=== PATIENT | male | born 1945 | race Two or more races ===

== ENCOUNTER 2022-08-28 07:15 | Day surgery (SDC) | payer MEDICARE, OTHER ==
[2022-08-24 13:38] LABS: Absolute Lymphocytes (CBC) 1.7 K/uL (0.7-4.9); Hematocrit 39.2 % (39.6-49.0); Lymphocytes % 32.7 % (15.3-44.8); MCV 102.8 fL (80-100); RBC Red Blood Cell Count 3.82 M/uL (4.33-5.43)
--- NOTE | 2022-08-24 13:39 | RAD REPORT ---
EXAM DESCRIPTION: RAD - Chest Pa And Lat (2 Views) - 08/24/2022 1:30 pm CLINICAL HISTORY: pre op for surgery Chest pain. TECHNIQUE: PA and lateral views of the chest were obtained. FINDINGS: The lungs are hyperexpanded compatible with COPD. The heart is upper limit of normal in si ze. No fracture or aggressive bony process. Dual lead pacer device. IMPRESSION: COPD without acute process identified. The USPSTF recommends annual screening for lung cancer with low-dose CT (LDCT) in adults aged 50 to 80 years who have a 20 pack-year smoking history and currently smoke or have quit within the past 15 years.
[2022-08-24 13:48] LABS: Potassium 4.5 mEq/L (3.5-5.1)
--- NOTE | 2022-08-25 07:48 | EKG ---
Test Date: 2022-08-24 Test Time: 13:20:45 Outpatient Clerk: LUPIS MEASUREMENT RESULTS: Intervals: Rate: 60 VT: 176 QRSD: 150 QT: 444 QTc: 444 [place]: P: 23 VT: 176 QRS: 45 T: 25 INTERPRETIVE STATEMENTS: Electronic atrial pacemaker Right bundle branch block Abnormal ECG Compared to ECG 01/16/2005 07:28:00 Sinus bradycardia no longer present Left ventricular hypertrophy no longer present Electronically Signed On 08-25-22 07:45:50 CDT by Murphy Bailon
[2022-08-28] MEDS ORDERED: CEFAZOLIN SODIUM 1 GM/VIAL ONE (07:37)
[2022-08-28] MEDS ORDERED: Ringers Lactate 1,000 ML IV ONE (07:37)
[2022-08-28] MEDS ORDERED: propofoL 200 MG/20 ML VIAL IV ONE (08:23)
[2022-08-28] MEDS ORDERED: LIDOCAINE 2% MPF 5 ML VIAL ONE (08:24)
[2022-08-28] MEDS ORDERED: FENTANYL CITR 100 MCG/2 ML ONE (08:24)
[2022-08-28] MEDS ORDERED: ONDANSETRON 4 MG/2 ML VIAL ONE (08:25)
[2022-08-28] MEDS ORDERED: BUPIVACAINE 0.5% PF 10 ML VIAL ONE (09:01)
[2022-08-28] MEDS ORDERED: NS 0.9% VIAL 20 ML ONE (09:20)
[2022-08-28] MEDS ORDERED: Phenylephrine HCl 10 MG/ML 1 ML VIAL ONE (09:21)
[2022-08-28] MEDS ORDERED: GLYCOPYRROLATE 0.2 MG/ML SYR ONE (09:21)
[2022-08-28] MEDS ORDERED: HYDROCODONE/APAP 7.5/325 MG TAB PO PRN (09:50)
[2022-08-28 10:03] VITALS: O2SAT 100
[2022-08-28 10:39] VITALS: BP 135/72; TEMP 96.7
== END 2022-08-28 11:04 | disposition home or self-care (01) ==
LOC: OR 07:15
PROVIDERS: ATTEND Surgery
PROC: 0JB90ZZ Excision of Buttock Subcutaneous Tissue and Fascia, Open Approach (ICD-10-PCS; principal; 2022-08-28 08:30)
DX: B07.9 Viral wart, unspecified (principal)
CPT/HCPCS: 11402; 93005; 85025; 80048; 36415; 88305; 71046; A4216; J2704; J2370; J2001; J3010; J2405; J7120; J0690

== ENCOUNTER 2024-01-10 20:41 | Emergency (ER) | payer OTHER ==
[2024-01-10] MEDS ORDERED: MORPHINE 4 MG/ML SYR ONE (21:02)
[2024-01-10] MEDS ORDERED: ONDANSETRON 4 MG/2 ML VIAL ONE (21:02)
[2024-01-10 21:15] LABS: Absolute Basophils 0.1 K/uL (0-0.5); Absolute Eosinophils 0.6 K/uL (0-0.5); Absolute Lymphocytes (CBC) 1.2 K/uL (0.7-4.9); Absolute Monocytes 0.7 K/uL (0.1-1.3); Absolute Neutrophil 2.4 K/uL (1.8-8.0); Basophils % 1.8 % (0-1.3); Eosinophils % 11.3 % (0-4.4); Hematocrit 38.2 % (39.6-49.0); MCH 35.1 pg (27.0-35.0); MCHC 34.1 g/dL (32.0-36.0); MCV 102.8 fL (80-100); MPV 8.4 fL (7.6-11.3); Monocytes % 13.9 % (3.3-12.3); Nucleated Red Blood Cells % 0.2 % (0-0); Platelets 316 thou/uL (152-406); RBC Red Blood Cell Count 3.71 M/uL (4.33-5.43); Red Cell Distribution Width 14.3 % (12.1-15.2)
[2024-01-10 21:32] LABS: Albumin 4.1 g/dL (3.4-5.0); Albumin/Globulin Ratio 1.1 (1.1-1.8); Anion Gap 6.4 mEq/L (5.0-15.0); Bilirubin Direct 0.2 mg/dL (0-0.2); Bilirubin Indirect, Calculated 0.4 mg/dL (0.2-0.8); Bilirubin Total 0.6 mg/dL (0.2-1.0); Globulin 3.6 g/dL (2.3-3.5); Magnesium 2.2 mg/dL (1.6-2.4); Potassium 4.4 mEq/L (3.5-5.1); Protein, Total 7.7 g/dL (6.4-8.2); Troponin High Sensitivity 15.1 pg/mL (<58.9)
--- NOTE | 2024-01-10 23:11 | RAD REPORT ---
EXAM: CTA of the chest, abdomen and pelvis HISTORY: Chest, abdomen and back pain COMPARISON: 2014 renal ultrasound TECHNIQUE: Multiple contiguous axial images were obtained a CTA of the chest and abdomen with contras t per aortic dissection protocol. Sagittal and coronal 3-D MIP reformats were performed. 100 cc 370 Isovue administered intravenously. FINDINGS: An aortic dissection not present. No aortic aneurysm. SMA, BENJA and celiac arteries patent Narrowing of the left subclavian vein. This results in collateral blood flow. 2 main right renal arteries. One main left renal arteries. Renal arteries unremarkable. No lung consolidation. Areas of subsegmental atelectasis right lung base. Elevation right hemidiaphra gm. No pleural effusion. No pericardial effusion Liver, spleen, pancreas, adrenals and left kidney demonstrate no significant abnormality. 2.2 cm cyst right kidney. An additional 6 mm right renal cystic mass too small to accurately characte rize. No evidence of diverticulitis. IMPRESSION: Negative for an aortic dissection 6 mm right renal cystic mass probably benign. Follow-up renal ultrasound in one year recommended Narrowing of the left subclavian vein most likely secondary to the arm being raised
--- NOTE | 2024-01-11 00:30 | EDPHYS ---
Physician Documentation [facility] Name: Kane Toney Age: 78 yrs Sex: Male : 1945 Arrival Date: 01/10/2024 Time: 20:41 Bed 4 Private MD: ED Physician Kenny Fuller HPI: 01/09 21:06 This 78 yrs old [place] Male presents to ER via Wheelchair with complaints of rt Irregular Pulse. 21:06 Patient with history of pacemaker placement about 1 years ago presents to the ED with rt reported low pulse is down to the 30s. The patient reports having pain to his back, denies chest pain. Denies other acute complaints, symptoms are moderate in severity, no other aggravating alleviating factors.. Historical: - Allergies: 21:01 Levaquin; vc1 - PSHx: 21:01 PACER; vc1 - Immunization history:: Client reports receiving the 2nd dose of the Covid vaccine. - Infectious Disease History:: Denies. - Social history:: Smoking status: Patient/guardian denies using tobacco, but has a distant history of tobacco abuse. - Family history:: not pertinent. ROS: 21:06 Constitutional: Negative for fever, chills, and weight loss, Cardiovascular: Negative rt for chest pain, palpitations, and edema, Respiratory: Negative for shortness of breath, cough, wheezing, and pleuritic chest pain, Abdomen/GI: Negative for abdominal pain, nausea, vomiting, diarrhea, and constipation, MS/Extremity: Negative for injury and deformity, Skin: Negative for injury, rash, and discoloration, 21:06 Back: Positive for pain at rest, pain with movement, Exam: 21:06 Constitutional: This is a well developed, well nourished patient who is awake, alert, rt and in no acute distress. Head/Face: Normocephalic, atraumatic. Chest/axilla: Normal chest wall appearance and motion. Nontender with no deformity. No lesions are appreciated. Cardiovascular: Regular rate and rhythm with a normal S1 and S2. No gallops, murmurs, or rubs. Normal PMI, no JVD. No pulse deficits. Respiratory: Lungs have equal breath sounds bilaterally, clear to auscultation and percussion. No rales, rhonchi or wheezes noted. No increased work of breathing, no retractions or nasal flaring. Abdomen/GI: Soft, non-tender, with normal bowel sounds. No distension or tympany. No guarding or rebound. No evidence of tenderness throughout. Skin: Warm, dry with normal turgor. Normal color with no rashes, no lesions, and no evidence of cellulitis. MS/ Extremity: Pulses equal, no cyanosis. Neurovascular intact. Full, normal range of motion. Neuro: Awake and alert, GCS 15, oriented to person, place, time, and situation. Cranial nerves II-XII grossly intact. Motor strength 5/5 in all extremities. Sensory grossly intact. Cerebellar exam normal. Normal gait. 21:06 ECG was reviewed by the Attending Physician. Vital Signs: 20:57 BP 171 / 85; Pulse 60; Resp 15; Temp 97.5; Pulse Ox 100% ; Weight 71.21 kg; Height 5 vc1 ft. 7 in. ; Pain 10/10; 21:08 BP 139 / 61; Pulse 69; Resp 15; Temp 97.5; Pulse Ox 100% on R/A; Pain 8/10; bm8 22:28 BP 145 / 83; Pulse 63; Resp 14; Temp 97.5; Pulse Ox 99% ; Pain 0/10; bm8 01/10 00:30 BP 139 / 76; Pulse 62; Resp 20; Temp 97.5; Pulse Ox 100% ; Pain 0/10; bm8 01/09 20:57 Body Mass Index 24.59 (71.21 kg, 170.18 cm) vc1 01/09 20:57 Pain Scale: Adult vc1 21:08 Pain Scale: Adult bm8 22:28 Pain Scale: Adult bm8 01/10 00:30 Pain Scale: Adult bm8 Nahma Coma Score: 01/09 21:08 Eye Response: spontaneous(4). Motor Response: obeys commands(6). Verbal Response: bm8 oriented(5). Total: 15. 22:28 Eye Response: spontaneous(4). Motor Response: obeys commands(6). Verbal Response: bm8 oriented(5). Total: 15. 01/10 00:30 Eye Response: spontaneous(4). Motor Response: obeys commands(6). Verbal Response: bm8 oriented(5). Total: 15. MDM: 01/09 20:49 Patient medically screened. rt 01/10 01:14 Differential Diagnosis Mechanical back pain, aortic dissection. Data reviewed: vital rt signs, nurses notes, lab test result(s), EKG, radiologic studies. Consideration of Admission/Observation Escalation of care including admission/observation considered. Patient's heart rates been in the 60s throughout his time in the emergency department, was observed for period of time. Symptoms have resolved with treatment in the ED. No signs for aortic dissection. Comfortable discharge, follow-up with cardiology as an outpatient.. I considered the following discharge prescriptions or medication management in the emergency department Medications were administered in the Emergency Department. See MAR. Independent interpretation of the following test(s) in the Emergency Department CT Scan: My interpretation is No aortic dissection seen on interpretation of CT scan images. Test considered but Not performed: MRI: No signs or symptoms to suggest cauda equina syndrome, spinal epidural abscess, MRI not indicated emergently. Counseling: I had a detailed discussion with the patient and/or guardian regarding the historical points, exam findings, and any diagnostic results supporting the discharge/admit diagnosis, lab results, radiology results, the need for outpatient follow up, to return to the emergency department if symptoms worsen or persist or if there are any questions or concerns that arise at home. Response to treatment: the patient's symptoms have resolved after treatment. 01/09 20:50 Order name: Basic Metabolic Panel; Complete Time: 21:44 rt 01/09 20:50 Order name: CBC with Diff; Complete Time: :44 rt 01/09 20:50 Order name: LFT's; Complete Time: :44 rt 01/09 20:50 Order name: Magnesium; Complete Time: :44 rt 01/09 20:50 Order name: NT PRO-BNP; Complete Time: 21:44 rt 01/09 20:50 Order name: Troponin HS; Complete Time: :44 rt 01/09 20:50 Order name: CT Aorta for Dissection; Complete Time: 23:20 rt 01/09 20:50 Order name: EKG; Complete Time: 20:50 rt 01/09 20:50 Order name: Cardiac monitoring; Complete Time: 21:07 rt 01/09 20:50 Order name: EKG - Nurse/Tech; Complete Time: 21:07 rt 01/09 20:50 Order name: IV Saline Lock; Complete Time: 21: rt 01/09 20:50 Order name: Labs collected and sent; Complete Time: rt 01/09 20:50 Order name: O2 Per Protocol; Complete Time: rt 01/09 20:50 Order name: O2 Sat Monitoring; Complete Time: rt 01/09 22:28 Order name: Interrogate Pacemaker; Complete Time: 22:48 rt EC/30 21:06 Rate is 60 beats/min. Rhythm is regular, Paced with No ectopy, Right bundle branch rt block. QRS Goodman is Normal. MI interval is normal. QRS interval is normal. QT interval is normal. No Q waves. No ST changes noted. Interpreted by me. Administered Medications: 21: Drug: morphine IVP or IV 4 mg IVP once over 4 mins Route: IVP; Infused Over: 4 mins; bm8 Site: left antecubital; 21:39 Follow up: Response: No adverse reaction bm8 21:07 Drug: Ondansetron IVP 4 mg IVP once; over 2 minutes Route: IVP; Site: left antecubital; bm8 21:38 Follow up: Response: No adverse reaction bm8 Disposition Summary: 01/11/24 00:30 Discharge Ordered Notes: Location: Home rt Problem: new rt Symptoms: have improved rt Condition: Stable rt Diagnosis - Acute back pain rt Followup: rt - With: Private Physician - When: 1 - 2 days - Reason: Discharge Instructions: - Discharge Summary Sheet rt - Acute Back Pain, Adult rt Forms: - Medication Reconciliation Form rt - Antibiotic Education rt - Prescription Opioid Use rt - Patient Portal Instructions rt - Leadership Thank You Letter rt Signatures: Dispatcher [employer] EDMS Prisca Brumfield RN RN vc1 Kenny Fuller MD MD rt Odell Mays RN RN bm8 Corrections: (The following items were deleted from the chart) 20:50 20:50 BASIC METABOLIC PANEL+C.LAB.BRZ ordered. EDMS EDMS 20:50 20:50 CBC+H.LAB.BRZ ordered. EDMS EDMS 20:50 20:50 HEPATIC FUNCTION+C.LAB.BRZ ordered. EDMS EDMS 20:50 20:50 MAGNESIUM+C.LAB.BRZ ordered. EDMS EDMS 20:50 20:50 PROBNP+C.LAB.BRZ ordered. EDMS EDMS 20:50 20:50 Troponin High Sensitivity+C.LAB.BRZ ordered. EDMS EDMS 20:50 20:50 Angio Aorta For Dissection+CT.RAD.BRZ ordered. EDMS EDMS 21:02 21:01 Allergies: No Known Allergies; vc1 vc1
--- NOTE | 2024-01-11 00:30 | ER ---
Nurse's Notes [facility] Name: Kane Toney Age: 78 yrs Sex: Male : 1945 Arrival Date: 01/10/2024 Time: 20:41 Bed 4 Private MD: Diagnosis: Acute back pain Presentation: 01/09 20:57 Chief complaint: Spouse and/or significant other states: HIS HEARTRATE KEEPS DROPPING vc1 DOWN TO 38 AND HE IS COMPLAINING OF PAIN TO HIS BACK. Coronavirus screen: Client denies travel out of the [place] in the last 14 days. At this time, the client does not indicate any symptoms associated with coronavirus-19. Ebola Screen: Patient negative for fever greater than or equal to 101.5 degrees Fahrenheit, and additional compatible Ebola Virus Disease symptoms Patient denies exposure to infectious person. Patient denies travel to an Ebola-affected area in the 21 days before illness onset. No symptoms or risks identified at this time. Initial Sepsis Screen: Does the patient meet any 2 criteria? No. Patient's initial sepsis screen is negative. Does the patient have a suspected source of infection? No. Patient's initial sepsis screen is negative. Risk Assessment: Do you want to hurt yourself or someone else? Patient reports no desire to harm self or others. Onset of symptoms was January 10, 2024. 20:57 Method Of Arrival: Wheelchair vc1 20:57 Acuity: DRHUV 3 vc1 21:01 Note [facility]. vc1 Historical: - Allergies: 21:01 Levaquin; vc1 - PSHx: 21:01 PACER; vc1 - Immunization history:: Client reports receiving the 2nd dose of the Covid vaccine. - Infectious Disease History:: Denies. - Social history:: Smoking status: Patient/guardian denies using tobacco, but has a distant history of tobacco abuse. - Family history:: not pertinent. Screenin:08 [facility] ED Fall Risk Assessment (Adult) History of falling in the last 3 months, bm8 including since admission No falls in past 3 months (0 pts) Confusion or Disorientation No (0 pts) Intoxicated or Sedated No (0 pts) Impaired Gait No (0 pts) Mobility Assist Device Used No (0 pt) Altered Elimination No (0 pt) Score/Fall Risk Level 0 - 2 = Low Risk Oriented to surroundings, Maintained a safe environment, Educated pt \T\ family on fall prevention, incl call for assistance when getting out of bed, Assessed \T\ reinforced patient's understanding of fall precautions, Hourly rounding (assess needs \T\ fall precautionary measures) done, Used ambulatory aids as needed (educated on \T\ assisted with), Used gait belt as appropriate. Abuse screen: Denies threats or abuse. Nutritional screening: No deficits noted. Tuberculosis screening: No symptoms or risk factors identified. Assessment: 21:08 Reassessment: Patient appears in no apparent distress at this time. Patient and/or bm8 family updated on plan of care and expected duration. Pain level reassessed. Patient is alert, oriented x 3, equal unlabored respirations, skin warm/dry/pink. General: Appears in no apparent distress. comfortable, Behavior is calm, cooperative, appropriate for age. Pain: Complains of pain in chest Pain radiates to back Pain currently is 8 out of 10 on a pain scale. Pain began 1 day ago. Neuro: No deficits noted. Level of Consciousness is awake, alert, obeys commands, Oriented to person, place, time, situation, Appropriate for age. Cardiovascular: Reports chest pain, lightheadedness, Heart tones S1 S2 present Capillary refill is > 3 seconds in bilateral fingers skin is cool and dry to touch. Rhythm is atrial pacer. Respiratory: Airway is patent Trachea midline Respiratory effort is even, unlabored, Respiratory pattern is regular, symmetrical, Breath sounds are clear bilaterally. GI: No signs and/or symptoms were reported involving the gastrointestinal system. : No signs and/or symptoms were reported regarding the genitourinary system. EENT: No signs and/or symptoms were reported regarding the EENT system. Derm: No signs and/or symptoms reported regarding the dermatologic system. Musculoskeletal: No signs and/or symptoms reported regarding the musculoskeletal system. 22:28 Reassessment: Patient appears in no apparent distress at this time. Patient and/or bm8 family updated on plan of care and expected duration. Pain level reassessed. Patient is alert, oriented x 3, equal unlabored respirations, skin warm/dry/pink. Patient denies pain at this time. Patient states feeling better. Patient states symptoms have improved. General: Appears in no apparent distress. comfortable, Behavior is calm, cooperative, appropriate for age. Pain: Denies pain. Neuro: No deficits noted. Level of Consciousness is awake, alert, obeys commands, Oriented to person, place, time, situation, Appropriate for age. Cardiovascular: Heart tones S1 S2 present Capillary refill < 3 seconds in bilateral fingers Patient's skin is warm and dry. Rhythm is atrial pacer. Respiratory: Airway is patent Respiratory effort is even, unlabored, Respiratory pattern is regular, symmetrical. 01/10 00:30 Reassessment: Patient appears in no apparent distress at this time. Patient and/or bm8 family updated on plan of care and expected duration. Pain level reassessed. Patient is alert, oriented x 3, equal unlabored respirations, skin warm/dry/pink. Patient denies pain at this time. Patient states feeling better. Patient states symptoms have improved. Vital Signs: 01/09 20:57 BP 171 / 85; Pulse 60; Resp 15; Temp 97.5; Pulse Ox 100% ; Weight 71.21 kg; Height 5 vc1 ft. 7 in. ; Pain 10/10; 21:08 BP 139 / 61; Pulse 69; Resp 15; Temp 97.5; Pulse Ox 100% on R/A; Pain 8/10; bm8 22:28 BP 145 / 83; Pulse 63; Resp 14; Temp 97.5; Pulse Ox 99% ; Pain 0/10; bm8 01/10 00:30 BP 139 / 76; Pulse 62; Resp 20; Temp 97.5; Pulse Ox 100% ; Pain 0/10; bm8 01/09 20:57 Body Mass Index 24.59 (71.21 kg, 170.18 cm) vc1 01/09 20:57 Pain Scale: Adult vc1 21:08 Pain Scale: Adult bm8 22:28 Pain Scale: Adult bm8 01/10 00:30 Pain Scale: Adult bm8 Randi Coma Score: 01/09 21:08 Eye Response: spontaneous(4). Motor Response: obeys commands(6). Verbal Response: bm8 oriented(5). Total: 15. 22:28 Eye Response: spontaneous(4). Motor Response: obeys commands(6). Verbal Response: bm8 oriented(5). Total: 15. 01/10 00:30 Eye Response: spontaneous(4). Motor Response: obeys commands(6). Verbal Response: bm8 oriented(5). Total: 15. ED Course: 01/09 20:43 Patient arrived in ED. gm2 20:43 Kenny Fuller MD is Attending Physician. rt 21:01 Triage completed. vc1 21:07 Odell Mays, RN is Primary Nurse. bm8 21:08 Patient has correct armband on for positive identification. Placed in gown. Bed in low bm8 position. Call light in reach. Side rails up X2. Adult w/ patient. Client placed on continuous cardiac and pulse oximetry monitoring. NIBP monitoring applied. monitoring analyst on. Pulse ox on. NIBP on. Door closed. Noise minimized. Warm blanket given. Pillow given. Verbal reassurance given. Head of bed elevated. 21:08 No provider procedures requiring assistance completed. Initial lab(s) drawn, by me, bm8 sent to lab. EKG done, by ED staff, reviewed by Kenny Fuller MD. Inserted saline lock: 18 gauge in left antecubital area, using aseptic technique. Blood collected. Flushed with 10 mL NS. Patient maintains SpO2 saturation greater than 95% on room air. 22:22 CT Aorta for Dissection In Process Unspecified. EDMS 01/10 00:30 Provided Education on: post er care. bm8 00:30 IV discontinued, intact, bleeding controlled, No redness/swelling at site. Pressure bm8 dressing applied. 00:32 Arm band placed on left wrist. bm8 Administered Medications: 01/09 21:07 Drug: morphine IVP or IV 4 mg IVP once over 4 mins Route: IVP; Infused Over: 4 mins; bm8 Site: left antecubital; 21:39 Follow up: Response: No adverse reaction bm8 21:07 Drug: Ondansetron IVP 4 mg IVP once; over 2 minutes Route: IVP; Site: left antecubital; bm8 21:38 Follow up: Response: No adverse reaction bm8 Medication: 21:08 VIS not applicable for this client. bm8 Outcome: 01/10 00:30 Discharge ordered by . rt 00:30 Discharged to home ambulatory, bm8 00:30 Condition: stable 00:30 Discharge instructions given to patient, family, Instructed on discharge instructions, follow up and referral plans. medication usage, safety practices, Demonstrated understanding of instructions, follow-up care, medications, 00:46 Patient left the ED. bm8 Signatures: Dispatcher [employer] EDMS Prisca Brumfield RN RN vc1 Kenny Fuller MD MD rt Mitchell, Ginger 2 Odell Mays RN RN bm8 Corrections: (The following items were deleted from the chart) 01/09 21:02 21:01 Allergies: No Known Allergies; vc1 vc1
[2024-01-11 01:38] VITALS: TEMP 97.5
[2024-01-11 01:44] VITALS: BP 139/76; O2SAT 100
--- NOTE | 2024-01-12 13:02 | EKG ---
Test Date: 2024-01-10 Test Time: 20:47:56 Head Of Training And Development: RACHID MEASUREMENT RESULTS: Intervals: Rate: 60 AR: 108 QRSD: 136 QT: 434 QTc: 434 [place]: P: -15 AR: 108 QRS: 23 T: -7 INTERPRETIVE STATEMENTS: Electronic atrial pacemaker Right bundle branch block Abnormal ECG Compared to ECG 08/24/2022 13:20:45 No significant changes Electronically Signed On 01-12-24 12:55:58 CDT by Riley Buck
== END 2024-01-11 00:46 | disposition home or self-care (01) ==
LOC: ER 20:41
DX: M54.9 Dorsalgia, unspecified (principal); Z95.0 Presence of cardiac pacemaker
CPT/HCPCS: 93005; 85025; 80048; 36415; 83735; 80076; 84484; 83880; 71275; 74175; 96375; 96374; 99285; Q9967; J2405